=== PATIENT | male | born 1975 | race Two or more races ===

== ENCOUNTER 2023-01-24 09:32 | Emergency (ER) | payer MEDICAID, OTHER ==
[~2023-01-24] VITALS: Ht 180.3 cm; Wt 88.0 kg
[2023-01-24] MEDS ORDERED: KETOROLAC TROMETH 60MG/2ML VIAL IM ONE (10:15)
[2023-01-24] MEDS ORDERED: LEVO500T91 PO (11:19)
[2023-01-24 11:40] LABS: Urine Bacteria NONE SEEN /hpf (None Seen); Urine Blood 1+ /uL (Negative); Urine Clarity Clear (Clear); Urine Protein, UAD TRACE (Negative); Urine Specific Gravity 1.013 (1.001-1.035); Urine Urobilinogen Normal (Negative); Urine WBC 45 /hpf (0 - 3); Urine WBC Clumps PRESENT /hpf (None Seen); Urine pH 6.5 (5.0-8.0)
[2023-01-24 11:53] LABS: Urine Color Straw (Yellow)
[2023-01-24 12:41] VITALS: BP 154/97; PULSE 18; RESP 18; TEMP 98.1; O2SAT 98
== END 2023-01-24 12:46 | disposition home or self-care (01) ==
LOC: ER 09:32
DX: N39.0 Urinary tract infection, site not specified (principal); Z46.6 Encounter for fitting and adjustment of urinary device; I10 Essential (primary) hypertension; E11.9 Type 2 diabetes mellitus without complications; E78.5 Hyperlipidemia, unspecified; Z86.73 Personal history of transient ischemic attack (TIA), and cerebral infarction without residual deficits; Z98.890 Other specified postprocedural states; Z88.0 Allergy status to penicillin; Z88.8 Allergy status to other drugs, medicaments and biological substances
CPT/HCPCS: 51705; 81001; 96372; 99284; J1885

== ENCOUNTER 2024-01-21 17:10 | Emergency (ER) | payer MEDICAID ==
[~2024-01-21 17:10] MED LIST: LEVO500T91 PO
== END 2024-01-21 17:51 | disposition left against medical advice (07) ==
LOC: ER 17:10
DX: J11.1 Influenza due to unidentified influenza virus with other respiratory manifestations (principal); Z53.21 Procedure and treatment not carried out due to patient leaving prior to being seen by health care provider

== ENCOUNTER 2024-01-25 20:57 | Emergency (ER) | payer MEDICAID ==
[~2024-01-25] VITALS: Ht 177.8 cm; Wt 86.3 kg
[2024-01-25 21:26] LABS: Basophils # (auto) 0 10 ^3/uL (0-0.2); Basophils % (auto) 0.4 % (0.0-2.0); Eosinophils # (auto) 0.1 10 ^3/uL (0-0.8); Eosinophils % (auto) 0.9 % (0.0-7.0); Hematocrit 39.2 % (41.0-53.0); Hemoglobin 13.8 g/dL (13.5-17.5); Lymphocytes # (auto) 3.4 10 ^3/uL (0.4-5.4); Lymphocytes % (auto) 38.9 % (10.0-50.0); Mean Corpuscular Hemoglobin 31.6 pg (28.0-32.0); Mean Corpuscular Hgb Conc. 35.1 g/dL (32.0-36.0); Monocytes # (auto) 0.8 10 ^3/uL (0-1.3); Monocytes % (auto) 8.7 % (0.0-12.0); Neutrophils # (auto) 4.5 10 ^3/uL (1.6-8.6); Neutrophils % (auto) 51.1 % (37.0-80.0); Nucleated Red Blood Cells % 0.3 %; Platelet Count (auto) 208 10^3/uL (140-450); Red Blood Cells 4.36 10^6/uL (4.5-5.90); Red Cell Distribution Width 15.4 % (11.8-14.3); White Blood Cell 8.9 10^3/uL (4.4-10.8)
[2024-01-25 21:45] LABS: Alanine Aminotransferase 401 U/L (7-40); Albumin 4.7 g/dL (3.2-4.8); Alkaline Phosphatase 81 U/L (46-116); Anion Gap 9 (5-15); Aspartate Aminotransferase 194 U/L (13-40); BUN/Creatinine Ratio 6.7 (10.0-20.0); Blood Urea Nitrogen 6 mg/dL (9-23); Calcium 11.8 mg/dL (8.7-10.4); Carbon Dioxide 22 mmol/L (20-31); Chloride 100 mmol/L (98-107); Glucose 166 mg/dL (74-106); Potassium 3.1 mmol/L (3.5-5.1); Sodium 131 mmol/L (136-145)
[2024-01-25 21:46] LABS: Bilirubin, Total 1.1 mg/dL (0.2-1.0); Total Protein 8.5 g/dL (5.7-8.2)
[2024-01-26 00:44] VITALS: BP 134/92; PULSE 91; RESP 16; TEMP 98.8; O2SAT 98
[2024-01-26] MEDS: LORazepam 0.5 MG TAB PO ONE (00:46)
[2024-01-26] MEDS: MAALOX PLUS or MAALOX 30 ML PO ONE (00:49)
[2024-01-26] MEDS: DONNATAL 5ml ORAL Elix (BELLADONNA ALK-PHENOBARB) PO ONE (00:49)
[2024-01-26] MEDS: LIDOCAINE VISCOUS 2% 15ML UD PO ONE (00:49)
== END 2024-01-26 01:30 | disposition home or self-care (01) ==
LOC: ER 20:57
DX: R07.89 Other chest pain (principal); F41.9 Anxiety disorder, unspecified; E11.9 Type 2 diabetes mellitus without complications; E78.5 Hyperlipidemia, unspecified; I10 Essential (primary) hypertension; K21.9 Gastro-esophageal reflux disease without esophagitis; Z21 Asymptomatic human immunodeficiency virus [HIV] infection status; Z86.73 Personal history of transient ischemic attack (TIA), and cerebral infarction without residual deficits; Z88.0 Allergy status to penicillin; Z88.1 Allergy status to other antibiotic agents; Z90.49 Acquired absence of other specified parts of digestive tract
CPT/HCPCS: 36415; 71045; 80053; 84484; 85025; 93005

== ENCOUNTER 2024-02-08 18:37 | Inpatient (IN) | payer MEDICAID ==
[~2024-02-08] VITALS: Ht 180.3 cm; Wt 82.0 kg
[2024-02-08] MEDS ORDERED: VANCOMYCIN PER PHARMACY 0 MG IV SCH (19:45)
[2024-02-08 20:12] LABS: Basophils # (auto) 0 10 ^3/uL (0-0.2); Basophils % (auto) 0.4 % (0.0-2.0); Eosinophils # (auto) 0.1 10 ^3/uL (0-0.8); Eosinophils % (auto) 1.2 % (0.0-7.0); Hematocrit 41.9 % (41.0-53.0); Hemoglobin 14.5 g/dL (13.5-17.5); Lymphocytes % (auto) 25.8 % (10.0-50.0); Mean Corpuscular Hemoglobin 31.5 pg (28.0-32.0); Mean Corpuscular Hgb Conc. 34.6 g/dL (32.0-36.0); Mean Corpuscular Volume 90.9 fL (80.0-100.0); Monocytes # (auto) 0.7 10 ^3/uL (0-1.3); Monocytes % (auto) 5.9 % (0.0-12.0); Neutrophils # (auto) 7.7 10 ^3/uL (1.6-8.6); Neutrophils % (auto) 66.7 % (37.0-80.0); Nucleated Red Blood Cells % 0.2 %; Platelet Count (auto) 223 10^3/uL (140-450); Red Blood Cells 4.61 10^6/uL (4.5-5.90); Red Cell Distribution Width 15.5 % (11.8-14.3); White Blood Cell 11.6 10^3/uL (4.4-10.8)
[2024-02-08 20:17] LABS: Urine Bacteria FEW /hpf (None Seen); Urine Blood 3+ /uL (Negative); Urine Clarity Turbid (Clear); Urine Color Light-Orange (Yellow); Urine Protein, UAD 1+ (Negative); Urine Specific Gravity 1.024 (1.001-1.035); Urine Urobilinogen Normal (Negative); Urine WBC 170 /hpf (0 - 3); Urine pH 6.5 (5.0-9.0)
[2024-02-08 20:24] LABS: Chloride 107 mmol/L (98-107); Potassium 3.8 mmol/L (3.5-5.1); Sodium 141 mmol/L (136-145)
[2024-02-08 20:25] LABS: Anion Gap 10 (5-15); Calcium 9.9 mg/dL (8.7-10.4); Carbon Dioxide 24 mmol/L (20-31)
[2024-02-08 20:30] LABS: Blood Urea Nitrogen 10 mg/dL (9-23); Glucose 103 mg/dL (74-106)
[2024-02-08 23:00] VITALS: PULSE 97; RESP 13; O2SAT 96
[2024-02-08] MEDS: SODIUM CHLORIDE 0.9% 1,000 ML IV ONE (23:13)
[2024-02-08] MEDS: ONDANSETRON HCL 4 MG/2 ML VIAL IV ONE (23:13)
[2024-02-08] MEDS: MORPHINE SULFATE 4 MG/ML SYR/VIAL IV ONE (23:14)
[2024-02-08] MEDS: HYDROcodone-ACET 10/325MG TAB PO ONE (23:14)
[2024-02-09] VITALS (11 sets, daily range): BP systolic 133–149; BP diastolic 81–86; PULSE 68–97; RESP 15–23; TEMP 98.2; O2SAT 96–100
[2024-02-09 00:24] LABS: Albumin 4.7 g/dL (3.2-4.8); Bilirubin, Total 0.4 mg/dL (0.2-1.0); Total Protein 8.6 g/dL (5.7-8.2)
[2024-02-09] MEDS ORDERED: DEXTROSE (50%) 50ML SYRG IV PRN (00:30)
[2024-02-09] MEDS: LEVALBUTEROL HCL 1.25 MG/3 ML NEB NEB SCH (00:30)
[2024-02-09] MEDS: IPRATROPIUM BROM 0.5 MG/2.5ML INH SOL NEB SCH (00:30)
[2024-02-09] MEDS ORDERED: ACETAMINOPHEN 500 MG TAB PO PRN (00:30)
[2024-02-09] MEDS: MORPHINE SULFATE INJ 2 MG/ml SYRG IV PRN (01:02)
[2024-02-09] MEDS: SODIUM CHLORIDE 0.9% 1,000 ML IV ONE (01:27)
[2024-02-09] MEDS: ATORVASTATIN 20 MG TAB PO ONE (01:28)
[2024-02-09] MEDS: PANTOPRAZOLE 40 MG/10 ML VIAL INJ IV ONE (01:28)
[2024-02-09 01:45] LABS: Amphetamine Screen, Urine Neg (NEGATIVE); Barbiturate Scree,Urine Neg (NEGATIVE); Benzodiazephine Screen, Urine Neg (NEGATIVE); Cannabinoid Screen, Urine Neg (NEGATIVE); Cocaine Screen, Urine Neg (NEGATIVE); Opiate Scree,Urine Neg (NEGATIVE); Phencyclidine Screen, Urine Neg (NEGATIVE)
[2024-02-09 01:46] LABS: Bilirubin, Direct 0.1 mg/dL (<0.3)
[2024-02-09] MEDS: cefTRIAXone 1GM/50ML D5W 50 ML IV SCH (01:53)
[2024-02-09] MEDS: diphenhdrAMINE HCL 50 MG/1 ML VL IV ONE (01:54)
[2024-02-09] MEDS: ASPirin 81 mg TAB PO ONE (02:04)
[2024-02-09] MEDS: ACCU-CHEK COMFORT CURVE STRIP VI SCH (03:30)
[2024-02-09] MEDS: InsuLIN REG 1unit/0.01ml Soln (100units/ml) SC SCH (03:36)
[2024-02-09 05:08] LABS: Chloride 111 mmol/L (98-107); Potassium 3.6 mmol/L (3.5-5.1); Sodium 139 mmol/L (136-145)
[2024-02-09 05:09] LABS: Anion Gap 5 (5-15); Calcium 8.8 mg/dL (8.7-10.4); Carbon Dioxide 23 mmol/L (20-31)
[2024-02-09 05:14] LABS: Blood Urea Nitrogen 9 mg/dL (9-23); Glucose 125 mg/dL (74-106)
[2024-02-09] MEDS: diphenhdrAMINE HCL 50 MG/1 ML VL IM ONE (05:52)
[2024-02-09] MEDS: MEROPENEM 1GM IVPB 50 ML IV SCH (05:57)
[2024-02-09] MEDS: PANTOPRAZOLE 40 MG TAB PO SCH (05:57)
[2024-02-09 06:59] LABS: Basophils # (auto) 0 10 ^3/uL (0-0.2); Basophils % (auto) 0.3 % (0.0-2.0); Eosinophils # (auto) 0.2 10 ^3/uL (0-0.8); Eosinophils % (auto) 3.1 % (0.0-7.0); Hemoglobin 14.1 g/dL (13.5-17.5); Lymphocytes # (auto) 1.7 10 ^3/uL (0.4-5.4); Lymphocytes % (auto) 21.6 % (10.0-50.0); Mean Corpuscular Hemoglobin 31.7 pg (28.0-32.0); Mean Corpuscular Hgb Conc. 34.5 g/dL (32.0-36.0); Monocytes # (auto) 0.4 10 ^3/uL (0-1.3); Monocytes % (auto) 5.3 % (0.0-12.0); Neutrophils # (auto) 5.3 10 ^3/uL (1.6-8.6); Neutrophils % (auto) 69.7 % (37.0-80.0); Nucleated Red Blood Cells % 0.1 %; Platelet Count (auto) 171 10^3/uL (140-450); Red Blood Cells 4.45 10^6/uL (4.5-5.90); Red Cell Distribution Width 15.6 % (11.8-14.3); White Blood Cell 7.7 10^3/uL (4.4-10.8)
[2024-02-09 08:20] LABS: COVID19 ANTIGEN SOFIA FIA NEGATIVE (NEGATIVE)
[2024-02-09] MEDS: levoFLOXacin 500MG 100 ML IV SCH (08:20)
[2024-02-09 08:21] LABS: Rapid Influenza A Negative (Negative); Rapid Influenza B Negative (Negative)
[2024-02-09] MEDS ORDERED: VANCOMYCIN PER PHARMACY 0 MG IV SCH (08:30)
[2024-02-09] MEDS: [UNRECOGNIZED DRUG - OTHER] PO SCH (10:00)
[2024-02-09] MEDS ORDERED: ERGOCALCIFEROL 50,000 UNIT(1.25MG) CAP PO SCH (10:00)
[2024-02-09] MEDS ORDERED: PANTOPRAZOLE 40 MG/10 ML VIAL INJ IV SCH (10:00)
[2024-02-09] MEDS: ASPirin 81 mg TAB PO SCH (10:16)
[2024-02-09] MEDS: ERGOCALCIFEROL 50,000 UNIT(1.25MG) CAP PO SCH (10:16)
[2024-02-09] MEDS: levETIRAcetam 500 MG TAB PO SCH (10:17)
[2024-02-09] MEDS: MORPHINE SULFATE INJ 2 MG/ml SYRG IV ONE (10:21)
[2024-02-09] MEDS: VANCOMYCIN 1GM/200ML PREMIX 250 ML IV SCH (11:03)
[2024-02-09] MEDS: HYDROcodone-ACET 5/325MG TAB PO PRN (12:44)
[2024-02-09] MEDS: CEFEPIME 1GM/ 50ML 50 ML IV SCH (14:05)
[2024-02-09] MEDS: ATORVASTATIN 20 MG TAB PO SCH (22:25)
[2024-02-10] VITALS (14 sets, daily range): BP systolic 121–155; BP diastolic 79–87; PULSE 60–93; RESP 16–21; TEMP 98–98.5; O2SAT 96–100
[2024-02-10] MEDS ORDERED: OLAN1TAB7 PO (01:54)
[2024-02-10] MEDS ORDERED: ASCO500T16 PO (01:54)
[2024-02-10] MEDS ORDERED: MUPI2CRE17 EX (01:54)
[2024-02-10] MEDS ORDERED: MORP15TA PO (01:54)
[2024-02-10] MEDS ORDERED: FAMO20TA10 PO (01:54)
[2024-02-10] MEDS ORDERED: LISI-275 PO (01:54)
[2024-02-10] MEDS ORDERED: ATOR10TA52 PO (01:54)
[2024-02-10] MEDS ORDERED: BICT1TAB PO (01:54)
[2024-02-10] MEDS ORDERED: METF-370 PO (01:54)
[2024-02-10] MEDS ORDERED: KEP500T PO (01:54)
[2024-02-10] MEDS ORDERED: PANT40TA2 PO (01:54)
[2024-02-10] MEDS ORDERED: HYDR1TAB97 PO (01:54)
[2024-02-10] MEDS ORDERED: ALPR0.5T PO (01:54)
[2024-02-10] MEDS ORDERED: ONDA-155 PO (01:54)
[2024-02-10] MEDS ORDERED: VENL1TAB97 PO (01:54)
[2024-02-10] MEDS ORDERED: OMEP20TA PO (01:54)
[2024-02-10] MEDS ORDERED: HYOS0.1293 (01:54)
[2024-02-10 05:06] LABS: Basos 0 % (Not Estab.); Eos 3 % (Not Estab.); Eos (Absolute) 0.2 x10E3/uL (0.0-0.4); Hematocrit 41.6 % (37.5-51.0); Hemoglobin 13.8 g/dL (13.0-17.7); Immature Granulocytes (Abs) 0 x10E3/uL (0.0-0.1); Lymphs 22 % (Not Estab.); Lymphs (Absolute) 1.6 x10E3/uL (0.7-3.1); MCH 30.5 pg (26.6-33.0); MCHC 33.2 g/dL (31.5-35.7); MCV 92 fL (79-97); Monocytes 5 % (Not Estab.); Monocytes (Absolute) 0.4 x10E3/uL (0.1-0.9); Neutrophils 70 % (Not Estab.); Platelets 171 x10E3/uL (150-450); RBC 4.53 x10E6/uL (4.14-5.80); RDW 14.8 % (11.6-15.4); WBC 7.2 x10E3/uL (3.4-10.8)
[2024-02-10 07:09] LABS: Basophils # (auto) 0 10 ^3/uL (0-0.2); Basophils % (auto) 0.2 % (0.0-2.0); Eosinophils # (auto) 0.1 10 ^3/uL (0-0.8); Eosinophils % (auto) 1.4 % (0.0-7.0); Hematocrit 38.6 % (41.0-53.0); Hemoglobin 13.3 g/dL (13.5-17.5); Lymphocytes # (auto) 1.4 10 ^3/uL (0.4-5.4); Lymphocytes % (auto) 27.6 % (10.0-50.0); Mean Corpuscular Hemoglobin 31.7 pg (28.0-32.0); Mean Corpuscular Hgb Conc. 34.5 g/dL (32.0-36.0); Monocytes # (auto) 0.3 10 ^3/uL (0-1.3); Neutrophils # (auto) 3.3 10 ^3/uL (1.6-8.6); Neutrophils % (auto) 64.8 % (37.0-80.0); Nucleated Red Blood Cells % 0.2 %; Platelet Count (auto) 132 10^3/uL (140-450); Red Blood Cells 4.19 10^6/uL (4.5-5.90); Red Cell Distribution Width 15.9 % (11.8-14.3); White Blood Cell 5.1 10^3/uL (4.4-10.8)
[2024-02-10 07:18] LABS: Anion Gap 8 (5-15); Carbon Dioxide 26 mmol/L (20-31); Chloride 105 mmol/L (98-107); Potassium 4.2 mmol/L (3.5-5.1); Sodium 139 mmol/L (136-145)
[2024-02-10 07:19] LABS: Calcium 9.6 mg/dL (8.7-10.4)
[2024-02-10 07:23] LABS: Glucose 164 mg/dL (74-106)
[2024-02-10 07:24] LABS: BUN/Creatinine Ratio 7.1 (10.0-20.0); Blood Urea Nitrogen 6 mg/dL (9-23)
[2024-02-10] MEDS: InsuLIN REG 1unit/0.01ml Soln (100units/ml) SC SCH (12:03)
[2024-02-10] MEDS ORDERED: DICYCLOMINE HCL 10 MG CAP PO PRN (12:45)
[2024-02-10] MEDS ORDERED: HYDROcodone-ACET 5/325MG TAB PO PRN (12:45)
[2024-02-10] MEDS: MORPHINE SULF 15mg ER tab PO ONE (14:42)
[2024-02-10] MEDS: MEROPENEM 1GM IVPB 50 ML IV SCH (14:42)
[2024-02-10] MEDS: MORPHINE SULFATE INJ 2 MG/ml SYRG IV ONE (17:32)
[2024-02-10] MEDS: KETOROLAC TROMETH 30 MG/ML 1ML VIAL IV ONE (20:52)
[2024-02-10] MEDS: clonazePAM 0.5 MG TAB PO ONE (23:29)
[2024-02-10] MEDS: MORPHINE SULF 15mg ER tab PO SCH (23:30)
[2024-02-11] VITALS (17 sets, daily range): BP systolic 128–144; BP diastolic 69–97; PULSE 58–89; RESP 16–20; TEMP 97.7–98.3; O2SAT 96–100
[2024-02-11 08:29] LABS: Chloride 106 mmol/L (98-107); Potassium 3.6 mmol/L (3.5-5.1); Sodium 139 mmol/L (136-145)
[2024-02-11 08:30] LABS: Anion Gap 7 (5-15); Calcium 9.6 mg/dL (8.7-10.4); Carbon Dioxide 26 mmol/L (20-31)
[2024-02-11 08:35] LABS: BUN/Creatinine Ratio 9.6 (10.0-20.0); Blood Urea Nitrogen 7 mg/dL (9-23); Glucose 86 mg/dL (74-106)
[2024-02-11] MEDS: VENLAFAXINE HCL 37.5MG TABLET PO SCH (09:32)
[2024-02-11] MEDS: LISINOPRIL 5 MG TAB PO SCH (09:33)
[2024-02-11 09:54] LABS: Hepatitis B Core Total AB Negative (Negative)
[2024-02-11 11:06] LABS: % CD 4 Pos Lymph 13.8 % (30.8-58.5); % CD 8 Pos Lymph 53.4 % (12.0-35.5); Absolute CD 4 Helper 221 /uL (359-1519); CD4/CD8 Ratio 0.26 (0.92-3.72)
[2024-02-11 11:31] LABS: Hepatitis A Total Antibody Positive (Negative)
[2024-02-11 11:32] LABS: Hepatitis A Ab IgM Negative; Hepatitis B Core IgM Negative; Hepatitis B Surface Antibody Positive (Negative); Hepatitis B Surface Antigen Negative (Negative)
[2024-02-11 11:34] LABS: Hepatitis C Antibody Positive (Negative)
[2024-02-11] MEDS: ALPRAZolam 0.5 MG TAB PO PRN (17:49)
[2024-02-11] MEDS: KETOROLAC TROMETH 30 MG/ML 1ML VIAL IV PRN (17:50)
[2024-02-11] MEDS ORDERED: clonazePAM 0.5 MG TAB PO PRN (20:30)
[2024-02-12] VITALS (13 sets, daily range): BP systolic 115–133; BP diastolic 69–97; PULSE 64–88; RESP 16–22; TEMP 97.5–98.1; O2SAT 95–99
[2024-02-12 07:44] LABS: Chloride 108 mmol/L (98-107); Potassium 3.9 mmol/L (3.5-5.1); Sodium 141 mmol/L (136-145)
[2024-02-12 07:45] LABS: Anion Gap 6 (5-15); Calcium 9.1 mg/dL (8.7-10.4); Carbon Dioxide 27 mmol/L (20-31)
[2024-02-12 07:50] LABS: BUN/Creatinine Ratio 12.8 (10.0-20.0); Blood Urea Nitrogen 10 mg/dL (9-23); Glucose 94 mg/dL (74-106)
[2024-02-12 12:07] LABS: QuantiFERON-TB Gold Plus Negative (Negative)
[2024-02-12 14:07] LABS: Chlamydia Trachomatis, NAA Negative (Negative); Neisseria gonorrhoeae, NAA Negative (Negative)
[2024-02-12] MEDS: FLUCONAZOLE 100 MG TAB PO ONE (16:09)
[2024-02-12] MEDS: OLANZapine 5 MG TAB PO SCH (16:09)
[2024-02-13] VITALS (9 sets, daily range): BP systolic 108–141; BP diastolic 69–82; PULSE 60–90; RESP 14–22; TEMP 97.7–98.3; O2SAT 94–100
[2024-02-13] MEDS: FLUCONAZOLE 100 MG TAB PO SCH (10:26)
[2024-02-13] MEDS: HYDROcodone-ACET 5/325MG TAB PO PRN (12:53)
[2024-02-13] MEDS ORDERED: IPRATROPIUM BROM 0.5 MG/2.5ML INH SOL NEB PRN ×2 (14:45→18:00)
[2024-02-13] MEDS ORDERED: LEVALBUTEROL HCL 1.25 MG/3 ML NEB NEB PRN (14:45)
== END 2024-02-13 16:45 | disposition left against medical advice (07) | DRG 466 ==
LOC: ER 18:37 → CENTRAL 23:50 → OVERFLOW 23:50 → CENTRAL 02-09 22:29
PROVIDERS: ADMIT Internal Medicine; ATTEND Internal Medicine
PROC: 05H933Z Insertion of Infusion Device into Right Brachial Vein, Percutaneous Approach (ICD-10-PCS; principal; 2024-02-11)
PROC: B54MZZA Ultrasonography of Right Upper Extremity Veins, Guidance (ICD-10-PCS; 2024-02-11)
DX: T83.518A Infection and inflammatory reaction due to other urinary catheter, initial encounter (principal); A41.51 Sepsis due to Escherichia coli [E. coli]; N30.90 Cystitis, unspecified without hematuria; B96.1 Klebsiella pneumoniae [K. pneumoniae] as the cause of diseases classified elsewhere; E11.9 Type 2 diabetes mellitus without complications; B97.89 Other viral agents as the cause of diseases classified elsewhere; E55.9 Vitamin D deficiency, unspecified; E78.5 Hyperlipidemia, unspecified; I10 Essential (primary) hypertension; K21.9 Gastro-esophageal reflux disease without esophagitis; N20.0 Calculus of kidney; Z16.12 Extended spectrum beta lactamase (ESBL) resistance; F41.0 Panic disorder [episodic paroxysmal anxiety]; Z53.29 Procedure and treatment not carried out because of patient's decision for other reasons; Z86.73 Personal history of transient ischemic attack (TIA), and cerebral infarction without residual deficits; Z88.0 Allergy status to penicillin; Z87.891 Personal history of nicotine dependence; Z80.52 Family history of malignant neoplasm of bladder; Z80.1 Family history of malignant neoplasm of trachea, bronchus and lung; Z83.3 Family history of diabetes mellitus; Z80.42 Family history of malignant neoplasm of prostate; Z79.891 Long term (current) use of opiate analgesic; Z79.84 Long term (current) use of oral hypoglycemic drugs; Z79.899 Other long term (current) drug therapy
CPT/HCPCS: 36415; 71045; 71250; 74176; 80048; 80074; 80076; 80202; 80307; 81001; 82270; 82306; 82607; 82962; 83036; 83605; 83880; 84443; 85025; 85048; 86360; 86703; 86704; 86706; 86708; 86803; 87040; 87070; 87077; 87086; 87088; 87186; 87205; 87340; 87389; 87426; 87493; 87804; 94640; G0378; J1815; J1885; J1956; J2185; J2405; J2470